=== PATIENT | male | born 1975 | race Caucasian/White ===

== ENCOUNTER 2018-07-09 18:27 | Observation (INO) | payer SELFPAY ==
[~2018-07-09] VITALS: Ht 180.3 cm; Wt 111.1 kg
[2018-07-09 19:30] LABS: BASO # 0.1 x10^3/uL (0.0-0.2); BASO % 1 % (0-3); EOS # 0.1 x10^3/uL (0.0-0.7); EOS % 2 % (0-3); HEMATOCRIT 46.8 % (39.0-53.0); HEMOGLOBIN 15.8 g/dL (13.0-17.5); LYMPH # 1.3 x10^3/uL (1.0-4.8); LYMPH % 18 % (24-48); MEAN CORPUSCULAR HEMOGLOBIN 30 pg (25-35); MEAN CORPUSCULAR HGB CONC 34 g/dL (31-37); MEAN CORPUSCULAR VOLUME 90 fL (79-100); MONO # 0.6 x10^3/uL (0.0-1.1); MONO % 8 % (0-9); NEUT # 5.1 x10^3uL (1.8-7.7); NEUT % 71 % (31-73); PLATELET COUNT 246 x10^3/uL (140-400); RED BLOOD COUNT 5.22 x10^6/uL (4.30-5.70); RED CELL DISTRIBUTION WIDTH 13.3 % (11.5-14.5); WHITE BLOOD COUNT 7.2 x10^3/uL (4.0-11.0)
[2018-07-09 19:40] LABS: CALCIUM 8.6 mg/dL (8.5-10.1); CREATININE 1.2 mg/dL (0.7-1.3); GFR 66.1; POTASSIUM 3.5 mmol/L (3.5-5.1)
[2018-07-09 19:46] LABS: ALBUMIN 3.4 g/dL (3.4-5.0); ALBUMIN/GLOBULIN RATIO 1.1 (1.0-1.7); TOTAL BILIRUBIN 0.4 mg/dL (0.2-1.0); TOTAL PROTEIN 6.5 g/dL (6.4-8.2)
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
[2018-07-09 20:41] LABS: BILIRUBIN,URINE NEGATIVE (NEG); CLARITY,URINE CLEAR; COLOR,URINE YELLOW; NITRITE,URINE NEGATIVE (NEG); PROTEIN,URINE NEGATIVE (NEG-TRACE); UROBILINOGEN,URINE 0.2 mg/dL (0.2 mg/dL)
[2018-07-09 20:47] LABS: BARBITURATES NEG (NEG); BENZODIAZEPINES NEG (NEG); CANNABINOIDS NEG (NEG); COCAINE NEG (NEG); METHADONE NEG (NEG); OPIATES NEG (NEG); PHENCYCLIDINE NEG (NEG)
[2018-07-09 20:48] LABS: AMPHETAMINE/METHAMPHETAMINE POS (NEG)
[2018-07-09 20:55] LABS: BACTERIA,URINE 0 /HPF (0-FEW); RBC,URINE 0 /HPF (0-2); SQUAMOUS EPITHELIAL CELL,UR FEW /LPF; WBC,URINE OCC /HPF (0-4)
[2018-07-09] MEDS ORDERED: ZOLPIDEM 5 MG TABLET. PO PRN (22:45)
[2018-07-09] MEDS ORDERED: LORazepam 1 MG TABLET PO PRN (22:45)
--- NOTE | 2018-07-10 00:05 | NUR ---
Admission: The patient, FAUSTINO ROSAS, 43 y/o, M admitted by JAMIE WELCH MD, was given written information regarding hospital policies, unit procedures and contact persons. Patient was transported from ED to the floor with security personnel via bed. RN collected patients belongings and removed from room. RN performed a head to toe assessment at this time, VSS, and afebrile, patients only complaint was that of a headache 3/10. Patient was calm and cooperative at the time. Admit orders were received and implemented. Patient is on a 1:1 observation and tech is at bedside. RN will continue to monitor closely.
[2018-07-10 00:15] VITALS: BP 117/83
--- NOTE | 2018-07-10 00:25 | NUR ---
RN paged Dr. Haywood to get some pain meds on board for the headache. MD called back, orders were received and implemented at that time. RN will continue to monitor.
[2018-07-10] MEDS ORDERED: ACETAMINOPHEN 325 MG TABLET. PO PRN (01:00)
[2018-07-10 07:00] VITALS: BP 125/81
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
--- NOTE | 2018-07-10 12:56 | NUR ---
At 0800, patient yelled, said he is going home. Patient is on 1:1 observation with aide present in the room when he became very impulse. He asked for his clothes and his phone. Patient signed AMA, he said he knows what he's doing. Paged Dr. Haywood at 0810 and spoke to him about the patient's behavior and decision. Charge nurse and converter supervisor were aware of the situation. Patient left the unit at 0830 with security officers.
== END 2018-07-10 08:30 | disposition left against medical advice (07) ==
LOC: ER 18:27 → 5 SOUTH 22:44
PROVIDERS: ADMIT Internal Medicine; ATTEND Internal Medicine
DX: R45.851 Suicidal ideations (principal); F15.129 Other stimulant abuse with intoxication, unspecified; F32.9 Major depressive disorder, single episode, unspecified; R51 Headache; M02.30 Reiter's disease, unspecified site
CPT/HCPCS: 36415; 80053; 80307; 81001; 83735; 85025; 99284; G0378; G0480; G0379

== ENCOUNTER 2020-09-06 15:28 | Emergency (ER) | payer SELFPAY ==
[~2020-09-06] VITALS: Ht 177.8 cm; Wt 111.0 kg
--- NOTE | 2020-09-06 15:56 | PHYS DOC ---
Past Medical History Past Medical History: Other Additional Past Medical Histor: Reiters syndrome Past Surgical History: Other Additional Past Surgical Histo: left leg fracture repair with hardware Smoking Status: Unknown if ever smoked Alcohol Use: None Drug Use: None General Adult EDM: Chief Complaint: ALTERED MENTAL STATUS HPI: HPI: 45-year-old male presenting the emergency department today after going to the police department not knowing where else to go. He recently broke his sobriety using meth this morning. He had been clean for about 3 months. He reports speech difficulties which he has been having for about 6 to 12 months intermitt ently. He describes stuttering of speech and sometimes having a hard time finding words. Last known well was more than 48 hours ago. He denies any focal neurologic deficits, facial drooping or weakness of the arms or legs. Review of systems is negative for chest pain shortness of breath abdominal pain vomiting diaphoresis fevers chills. He denies headache. He denies recent head trauma. All other review of systems negative. ED course: 45-year-old male presenting to the emergency department today with the desire to get resources for his meth use. During the interview it became clear that the patient was having some stuttering of speech which has been going on for the last week and intermittently for the past 6 to 12 months. He reports the symptoms are present without his drug use and today were present before he was using meth. Stroke scale shows an NIH of 0. Patient stuttering went away when he was distracted for example when he went to CAT scan he was focusing on something else and his stuttering was totally normal. He states that he starts stuttering when he is nervous. CBC is unremarkable. Chemistry panel unremarkab le. Urine analysis is negative. UDS shows meth and cannabinoids. X-ray not suggestive of acute fracture or dislocation. Head CT unremarkable. No large vessel occlusion on CT angiography of the head or neck. The psychiatric assessment team was called to evaluate and assist the patient with resources. The patient is not suicidal or homicidal at this time is cooperative. Heart Score: C/O Chest Pain: No Risk Factors: Risk Factors: DM, Current or recent (<one month) smoker, HTN, HLP, family history of CAD, obesity. Risk Scores: Score 0 - 3: 2.5% MACE over next 6 weeks - Discharge Home Score 4 - 6: 20.3% MACE over next 6 weeks - Admit for Clinical Observation Score 7 - 10: 72.7% MACE over next 6 weeks - Early Invasive Strategies Allergies: Allergies: Allergies Coded Allergies Type Severity Reaction Last Updated Verified No Known Drug Allergies 07/09/18 No Physical Exam: PE: Constitutional: Well developed, well nourished, no acute distress, non-toxic appearance. [] HENT: Normocephalic, atraumatic, bilateral external ears normal, oropharynx moist, no oral exudates, nose normal. [] Eyes: PERRLA, EOMI, conjunctiva normal, no discharge. [] Neck: Normal range of motion, no tenderness, supple, no stridor. [] Cardiovascular:Heart rate regular rhythm, no murmur [] Lungs & Thorax: Bilateral breath sounds clear to auscultation [] Abdomen: Bowel sounds normal, soft, no tenderness, no masses, no pulsatile masses. [] Skin: Warm, dry, no erythema, no rash. [] Back: No tenderness, no CVA tenderness. [] Extremities: No tenderness, no cyanosis, no clubbing, ROM intact, no edema. [] Neurologic: Mental status: Awake oriented and alert x3 Cranial nerves: Extraocular movements intact, eyebrows britany bilaterally, smile symmetric, uvula elevation nl, shoulder shrug intact bilaterally, tongue protrusion normal Clear speech. Normal [id number]. Sensation: equal and normal in all extremities Strength: 5/5 in upper and lower extremities bilaterally Psychologic: Affect normal, judgement normal, mood normal. [] EKG: EKG: [] Radiology/Procedures: Radiology/Procedures: [] Course & Med Decision Making: Course & Med Decision Making Pertinent Labs and Imaging studies reviewed. (See chart for details) [] Dragon Disclaimer: Dragon Disclaimer: This electronic medical record was generated, in whole or in part, using a voice recognition dictation system. Departure Departure Impression: Primary Impression: Amphetamine abuse Additional Impression: Speech abnormality Referrals: NO PCP (PCP) Scripts No Active Prescriptions or Reported Meds NIHSS Stroke Scale NIH Stroke Scale: NIH Stroke Scale Response (Comments) Value Level of Consciousness: 0 Alert/Responsive 0 LOC Questions: 0 Answers both correctly 0 LOC Commands: 0 Performs both tasks 0 Best Gaze: 0 Normal 0 Visual: 0 No visual loss 0 Facial Palsy: 0 Normal, symmetrical 0 Motor - Left Arm 0 No drift 0 Motor - Right Arm 0 No drift 0 Motor - Left Leg 0 No drift 0 Motor: Right Leg 0 No drift 0 Limb Ataxia: 0 Absent 0 Sensory: 0 No loss 0 Best Language: 0 Normal 0 Dysathria: 0 Normal 0 Extinction and Inattention: 0 Normal 0 Total 0 SEBAS KOWALSKI MD Sep 06, 2020 15:56
[2020-09-06 16:12] LABS: BASO # 0.1 x10^3/uL (0.0-0.2); BASO % 1 % (0-3); EOS # 0.1 x10^3/uL (0.0-0.7); EOS % 1 % (0-3); HEMATOCRIT 48.3 % (39.0-53.0); HEMOGLOBIN 16.5 g/dL (13.0-17.5); LYMPH # 0.9 x10^3/uL (1.0-4.8); LYMPH % 12 % (24-48); MEAN CORPUSCULAR HEMOGLOBIN 30 pg (25-35); MEAN CORPUSCULAR HGB CONC 34 g/dL (31-37); MEAN CORPUSCULAR VOLUME 89 fL (79-100); MONO # 0.5 x10^3/uL (0.0-1.1); MONO % 7 % (0-9); NEUT # 5.5 x10^3/uL (1.8-7.7); NEUT % 79 % (31-73); PLATELET COUNT 285 x10^3/uL (140-400); RED BLOOD COUNT 5.43 x10^6/uL (4.30-5.70); RED CELL DISTRIBUTION WIDTH 13.6 % (11.5-14.5); WHITE BLOOD COUNT 6.9 x10^3/uL (4.0-11.0)
[2020-09-06 16:25] LABS: CALCIUM 8.7 mg/dL (8.5-10.1); GFR 80.8; POTASSIUM 3.5 mmol/L (3.5-5.1)
[2020-09-06 16:31] LABS: ACETAMIN < 2 mcg/ml (10-30); ALBUMIN 3.8 g/dL (3.4-5.0); DIRECT BILIRUBIN 0.1 mg/dL (0.0-0.2); ETHANOL < 10 mg/dL (0-10); SALIC < 2.8 mg/dL (2.8-20.0); TOTAL BILIRUBIN 0.7 mg/dL (0.2-1.0); TOTAL PROTEIN 7.2 g/dL (6.4-8.2)
[2020-09-06] MEDS ORDERED: CONTRAST GIVEN. MC PRN (16:45)
[2020-09-06] MEDS ORDERED: IOHEXOL 350 MG/ML 100 ML VIAL. IV ONE (16:45)
[2020-09-06 17:12] LABS: BILIRUBIN,URINE NEGATIVE (NEG); CLARITY,URINE CLEAR; NITRITE,URINE NEGATIVE (NEG); PROTEIN,URINE NEGATIVE (NEG-TRACE); UROBILINOGEN,URINE 0.2 mg/dL (0.2 mg/dL)
[2020-09-06] MEDS ORDERED: DIPH,PERTUSS(ACELL),TET VAC/PF 0.5 ML SYRINGE. VAX IM ONE (17:15)
[2020-09-06 17:16] LABS: COLOR,URINE STRAW
[2020-09-06 17:18] LABS: BACTERIA,URINE 0 /HPF (0-FEW); BARBITURATES NEG (NEG); BENZODIAZEPINES NEG (NEG); CANNABINOIDS POS (NEG); COCAINE NEG (NEG); METHADONE NEG (NEG); OPIATES NEG (NEG); PHENCYCLIDINE NEG (NEG); RBC,URINE OCC /HPF (0-2); WBC,URINE 0 /HPF (0-4)
[2020-09-06 17:19] LABS: AMPHETAMINE/METHAMPHETAMINE POS (NEG)
--- NOTE | 2020-09-06 17:28 | RAD ---
EXAM: PA, oblique and lateral views right hand DATE: 09/06/2020 5:22 PM INDICATION: Reason: right hand pain / Spl. Instructions: / History: COMPARISON: No Prior FINDINGS: No acute fracture or dislocation. Scattered IP joint degenerative change. Old/healed fracture deformi ty index metacarpal neck. Soft tissue swelling about the thumb and index finger. IMPRESSION: No evidence of acute fracture or dislocation. Electronically signed by: Kye Babin MD (09/06/2020 5:25 PM) CRICKET
--- NOTE | 2020-09-06 17:33 | RAD ---
Exam: CT head. CTA head and neck INDICATION: Speech disturbance TECHNIQUE: Sequential axial images through the head were obtained without the administration of IV co ntrast. Sequential axial images through the head and neck were obtained following the administration of 75 mL of Omni 350. 3-D reformatted images were reconstructed from the axial data and reviewed. Comparisons: None FINDINGS: Head: No focal parenchymal lesion or hemorrhage is identified. There is no midline shift or sulcal effaceme nt. No acute vascular territory infarction is identified. Biswas-white distinction is preserved. The ventricular system is within normal limits without compression hydrocephalus. The basal cisterns are well maintained. The visualized portions of the paranasal sinuses and mastoid air cells are well-pneumatized. No acute fractures. CTA NECK: Visualized portions of the thoracic aorta are unremarkable. Standard three-vessel aortic arch anatomy . Right common carotid artery is patent without evidence of stenosis, occlusion or aneurysm. Cervical s egment of the right internal carotid artery is patent without evidence of stenosis, occlusion or aneu rysm. Left common carotid artery is patent without evidence of stenosis, occlusion or aneurysm. Cervical se gment of the left internal carotid artery is patent without evidence of stenosis, occlusion or aneury sm. Right vertebral artery is patent to the basilar confluence without evidence of stenosis, occlusion or aneurysm. Left vertebral artery is patent to basilar confluence without evidence of stenosis, occlusion or aneu rysm. Visualized paraspinal soft tissues are unremarkable. CTA HEAD: Intracranial segments of the right internal carotid artery are patent without evidence of stenosis, o cclusion or aneurysm. Right MCA is patent. Right MIGUEL ÁNGEL is patent. Intracranial segments of the left internal carotid artery are patent without evidence of stenosis, oc clusion or aneurysm. Left MCA is patent. Left MIGUEL ÁNGEL is patent. Basilar artery is patent without evidence of stenosis, occlusion or aneurysm. bicycle fitter are patent bilater ally. IMPRESSION: 1. No acute intracranial abnormality. 2. Patent intracranial cervical arterial vasculature without evidence of stenosis, occlusion or aneu rysm. Exposure: One or more of the following in the visualized dose reduction techniques were utilized for this examination: 1. Automated exposure control 2. Adjustment of the MA and/or KV according to patient size Use of iterative of reconstructive technique Electronically signed by: Agustin Cuellar MD (09/06/2020 5:31 PM) [facility]
[2020-09-06 18:33] VITALS: BP 153/88
--- NOTE | 2020-09-07 01:15 | EKG ---
[facility] [address] [place] [id number] Test Date: 2020-09-06 Test Time: 15:47:29 Pat Name: FAUSTINO ROSAS Department: Room: Gender: M Ict Programmer: : 1975 Requested By: SEBAS KOWALSKI Order Number: [id number] Reading MD: Measurements Intervals [place] Rate: 99 P: 51 WV: 168 QRS: 7 QRSD: 84 T: 28 QT: 346 QTc: 449 Interpretive Statements SINUS RHYTHM NORMAL ECG RI6.02 No previous ECG available for comparison
== END 2020-09-06 19:05 | disposition home or self-care (01) ==
LOC: ER 15:28
DX: F15.10 Other stimulant abuse, uncomplicated (principal); F19.10 Other psychoactive substance abuse, uncomplicated; Z98.890 Other specified postprocedural states
CPT/HCPCS: 36415; 70450; 70496; 70498; 73130; 80048; 80076; 80307; 80329; 81001; 83690; 85025; 99285; G0480; Q9967; 93005